=== PATIENT | male | born 1935 | race Caucasian/White ===

== ENCOUNTER 2019-09-08 12:34 | Day surgery (SDC) | payer MEDICARE ==
[~2019-09-08] VITALS: Ht 167.6 cm; Wt 79.7 kg
[~2019-09-08 12:34] MED LIST: ACET500T15 PO; BICA50TA9 PO; CALC0.009 TOP; CALCCHW4 PO; CETI5TAB3 PO; DONE10TA90 PO; FLUOCRE EX; FURO40TA2 PO; LR 500 ML IV ONE; LUPR45IN IM; MEMA10TA19 PO; METO1TAB7 PO; PANT40TA3 PO; PRED10PA2 PO; VALS1TAB66 PO; ceFAZolin SOD 1 GM in D5W MINI-BAG PLUS 50 ML IV ONE
[2019-09-08] MEDS ORDERED: LIDOCAINE 2% INJ 100 MG/5 ML SDV (FOR ANES.) As Ordered ONE (13:52)
[2019-09-08] MEDS ORDERED: propofoL 200 MG/20 ML VIAL As Ordered ONE (13:52)
[2019-09-08] MEDS ORDERED: MIDAZOLAM INJ 2 MG/2 ML VIAL (J2250) As Ordered ONE (13:53)
[2019-09-08] MEDS ORDERED: fentaNYL 100 MCG/2 ML INJECTION (J3010) As Ordered ONE (13:53)
[2019-09-08] MEDS ORDERED: LR 1,000 ML IV ONE (14:00)
[2019-09-08] MEDS ORDERED: NEOSPORIN TOP OINT 15GM As Ordered ONE (14:16)
[2019-09-08] MEDS ORDERED: LIDOCAINE 1% MDV 20ML VIAL As Ordered ONE (14:16)
[2019-09-08] MEDS ORDERED: VANCOMYCIN 1000 MG/20 ML VIAL (J3370) As Ordered ONE (14:16)
[2019-09-08] MEDS ORDERED: KETAMINE HCL 200 MG/20 ML VIAL As Ordered ONE (15:34)
[2019-09-08] MEDS ORDERED: ONDANSETRON 4MG/2ML VIAL (J2405) As Ordered ONE (15:56)
--- NOTE | 2019-09-08 17:19 | RO ---
DATE OF PROCEDURE: 09/08/2019 PREPROCEDURE DIAGNOSIS: Pacemaker battery depletion. POSTPROCEDURE DIAGNOSIS: Pacemaker battery depletion. FINDINGS: Pacemaker battery depletion. PROCEDURE PERFORMED: Explantation of old single-chamber pacemaker pulse generator and implantation of new single-chamber pacemaker pulse generator. SURGEON: Quentin Alcocer MD [employer] MEMBER: None. ANESTHESIA: Lidocaine 1% local/monitored anesthetic care. SPECIMENS: Old [employer] pacemaker pulse generator. ESTIMATED BLOOD LOSS: Less than 3 mL. No blood products replaced. No drains. No complications. DESCRIPTION OF PROCEDURE: The patient was prepped and draped over the left pectoral region. 3M Ioban film was applied. Lidocaine 1% was used for local anesthetic. I made an incision through the existing lower most of the two existing pacemaker incision scars using a #15 blade. I used fine scissor dissection to get down to the anterior capsule and through the anterior capsule. I used a small amount of PEAK PlasmaBlade to free up the pacemaker lead, which was over top of the pacemaker pulse generator. The suture holding down the pacemaker pulse generator was cut. The pacemaker pulse generator was then removed from the pocket. After loosening the set screw, the existing ventricle lead terminal pinwas removed from pacemaker header. The free terminal pin of the existing pacemaker lead was plugged into an [employer] lead adapter, unipolar, reference number C/IS-10 with serial number [id number], which was 10 cm in length. It was secured with a hex screw skip load driver. I then placed some silicone glue into the gap between the adaptor and the pacemaker lead, and also placed some silicone glue into the hex nut port of the adaptor. I also placed an #0 Ethibond suture over the tie-down on the sleeve portion of the adaptor. I then placed the other portion of the adaptor into the new pacemaker pulse generator. This was then secured by tightening the set screw with a hex screwdriver. I then took a TYRX antimicrobial envelope and cut it into six pieces, which were placed into the pacemaker pocket. The excess lead material, including the lead adaptor was placed into the floor of the pacemaker pocket with the pacemaker pulse generator on top. The deep layer was closed using individual sutures consisting of #2-0 Vicryl. A few additional #3-0 Vicryl sutures were used to approximate the more superficial layer. The incision was then closed using juan. Over top the ujan, the dressing applied consisted of triple antibiotic ointment, followed by Telfa, followed by a Bio-occlusive dressing. The patient tolerated the procedure well without any immediate complications. The new pacemaker pulse generator implanted was a [facility] [facility] [email or web address], reference number KS4345 with serial number [id number]. The pacemaker pulse generator that was removed was a [employer] [facility], model number 5157 with serial number [id number], which was implanted 12/30/2006. The existing pacemaker lead was a [employer] HTI, model 329-158A with serial number [id number], originally implanted 05/02/1987. Testing via the new pacemaker pulse generator for the right ventricle lead showed a capture threshold of 1.3 volts at 0.4 milliseconds with R wave amplitude of 6.5 millivolts and lead impedance of 480 ohms. MTDD
[2019-09-08 17:40] VITALS: BP 144/67
== END 2019-09-08 17:50 | disposition home or self-care (01) ==
LOC: M SDC 12:34
PROVIDERS: ATTEND Internal Medicine Cardiovascular Disease
DX: Z45.010 Encounter for checking and testing of cardiac pacemaker pulse generator [battery] (principal); I10 Essential (primary) hypertension; E78.5 Hyperlipidemia, unspecified; L40.9 Psoriasis, unspecified; J44.9 Chronic obstructive pulmonary disease, unspecified; Z87.891 Personal history of nicotine dependence; Z79.899 Other long term (current) drug therapy; Z79.52 Long term (current) use of systemic steroids; Z91.041 Radiographic dye allergy status; Z85.46 Personal history of malignant neoplasm of prostate
CPT/HCPCS: 33227; C1786; C1883; J0690; J2250; J2405; J3010; J3370